=== PATIENT | female | born 1955 | race Caucasian/White ===

== ENCOUNTER → 2016-12-24 | Outpatient (CLI) | payer OTHER ==
--- NOTE | 2016-12-24 17:39 | MA ---
Screening Digital Mammogram With iCAD Analysis Clinical Indications: Routine screening. Her mother was diagnosed with breast cancer in her 60s. Technique: Standard cephalocaudal projections are obtained. Digital breast tomosynthesis was performe d in the MLO projection with reconstruction at 1.0 mm slice thickness and composite MLO views reconst ructed. This examination is processed by the iCAD computer aided detection system. Comparison: January 2014, January 2011, December 2008. Breast density: Type B; Scattered fibroglandular densities. Findings: CAD was reviewed. No masses, suspicious calcifications or secondary signs of malignancy are seen. There has been no significant change in the appearance of either breast. Impression: Negative mammogram. BI-RADS 1. Recommendation: Routine mammographic screening in one year. [facility] will send a result letter to the patient. Negative mammography should not preclude additional workup of a clinically suspicious finding. The patient's information is entered into a reminder system with a target due date for her next mammo gram.
== END ==
LOC: FIMAGING 16:26
DX: Z12.31 Encounter for screening mammogram for malignant neoplasm of breast (principal); Z80.3 Family history of malignant neoplasm of breast
CPT/HCPCS: G0202

== ENCOUNTER 2019-01-28 16:23 | Inpatient (IN) | payer OTHER ==
--- NOTE | 2019-01-28 16:32 | EDPHY ---
H & P Time Seen by Provider: 01/28/19 16:30 HPI/ROS: CHIEF COMPLAINT: Chest heaviness HISTORY OF PRESENT ILLNESS: Patient started having symptoms back around . She would notice fatigue shortness of breath and chest heaviness going up the stairs. She had a high calcium score about 3 and half years ago and has known high cholesterol. She was seen in Dr. Garcia's office and had an abnormal EKG and was sent to the emergency department for admission. Currently patient is a little bit of chest heaviness. She has had a little bit of cough but no hemoptysis and no leg swelling. Symptoms are definitely worse with exertion. Does not radiate. REVIEW OF SYSTEMS: Eye: no change in vision ENT: no sore throat Cardiac: HPI Pulmonary: HPI Abdomen: no vomiting, diarrhea, abdominal pain Musculoskeletal: Chronic spinal stenosis unchanged Skin: no rash Neuro: no headache Constitutional: no fever : no urinary symptoms A comprehensive 10 point review of systems is otherwise negative aside from elements mentioned in the history of present illness. 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 Eyes: No scleral icterus. ENT, Mouth: Normal mucous membranes. Respiratory: Normal respiratory effort, breath sounds equal, lungs are clear to auscultation. Cardiovascular: Regular rate and rhythm. Gastrointestinal: Abdomen is soft and non tender. Neurological: Alert, face symmetric, normal motor and sensory in extremities. Skin: Warm and dry, no rashes. Musculoskeletal: No peripheral edema. No calf tenderness Psychiatric: Not agitated. Emergency Department course/MDM: Suspicion for unstable angina, discussed with electronics hardware design engineer Dr. Anayeli Garcia prior to arrival. Oral aspirin, sublingual nitroglycerin, chest x-ray and EKG, admission hospitalist service for probable cardiac catheterization tomorrow. Smoking Status: Former smoker Constitutional: Initial Vital Signs Temperature (C) 36.4 C 01/28/19 16:40 Heart Rate 68 01/28/19 16:40 Respiratory Rate 16 01/28/19 16:40 Blood Pressure 175/100 H 01/28/19 16:40 O2 Sat (%) 95 01/28/19 16:40 O2 Delivery Mode Room Air Allergies/Adverse Reactions: cortisone [Cortisone] Allergy (Severe, Verified 01/28/19 18:14) prednisone Allergy (Verified 01/28/19 17:10) BROCCOLI Allergy (Uncoded 08/18/14 11:57) EGG WHITES Allergy (Uncoded 08/18/14 11:57) EGGPLANT Allergy (Uncoded 08/18/14 11:57) ZUCCHINI Allergy (Uncoded 08/18/14 11:57) Home Medications: Medication Instructions Recorded Ascorbic Acid [Vitamin C 500 mg 1,000 mg PO BID 01/28/19 (*)] Aspirin [Aspirin 325 mg (*)] 325 mg PO DAILY 01/28/19 Bimatoprost [Bimatoprost] 1 drop EACHEYE HS 01/28/19 Cholecalciferol (Vitamin D3) 5,000 unit PO DAILY 01/28/19 [Vitamin D3] Estradiol [Estradiol] 1 luke VG HS PRN 01/28/19 Herbals/Supplements -Info Only 1 ea PO DAILY 01/28/19 Ibuprofen [Motrin (*)] 600 mg PO DAILY PRN 01/28/19 Methocarbamol [Methocarbamol] 500 mg PO TID PRN 01/28/19 [place]-3 Fatty Acids/Fish Oil 1 each PO BID 01/28/19 [[place]-3 Fish Oil 1,200 mg Sfgl] Medical Decision Making - Diagnostics EKG Interpretation: 12-lead EKG interpreted by me; official reading is in computer system. My interpretation is sinus rhythm rate 65 no acute ischemic changes. Imaging Results: Imaging Impressions Chest X-Ray 01/28/19 16:42 Impression: Suspect airways disease with no superimposed acute abnormality identified. Imaging: I viewed and interpreted images myself Differential Diagnosis: Differential diagnosis considered for chest pain including but not limited to myocardial ischemia, aortic dissection, pericarditis, pulmonary embolus, chest wall pain, pleural inflammation and pulmonary infectious causes. Consult/Admit Bed Type: [facility] 1717, [place] 1726 - Data Points Laboratory Results: Laboratory Results 01/28/19 16:50 01/28/19 16:50 01/28/19 01/28/19 01/28/19 16:53 16:50 16:50 WBC 5.50 10^3/uL 10^3/uL (3.80-9.50) RBC 4.57 10^6/uL 10^6/uL (4.18-5.33) Hgb 14.1 g/dL g/dL (12.6-16.3) Hct 41.2 % % (38.0-47.0) MCV 90.2 fL fL (81.5-99.8) MCH 30.9 pg pg (27.9-34.1) MCHC 34.2 g/dL g/dL (32.4-36.7) RDW 12.3 % % (11.5-15.2) Plt Count 250 10^3/uL 10^3/uL (150-400) MPV 9.5 fL fL (8.7-11.7) Neut % (Auto) 44.3 % % (39.3-74.2) Lymph % (Auto) 45.5 % H % (15.0-45.0) [place] % (Auto) 5.6 % % (4.5-13.0) Eos % (Auto) 4.0 % % (0.6-7.6) Baso % (Auto) 0.4 % % (0.3-1.7) Nucleat RBC Rel Count 0.0 % % (0.0-0.2) Absolute Neuts (auto) 2.44 10^3/uL 10^3/uL (1.70-6.50) Absolute Lymphs (auto) 2.50 10^3/uL 10^3/uL (1.00-3.00) Absolute Monos (auto) 0.31 10^3/uL 10^3/uL (0.30-0.80) Absolute Eos (auto) 0.22 10^3/uL 10^3/uL (0.03-0.40) Absolute Basos (auto) 0.02 10^3/uL 10^3/uL (0.02-0.10) Absolute Nucleated RBC 0.00 10^3/uL 10^3/uL (0-0.01) Immature Gran % 0.2 % % (0.0-1.1) Immature Gran # 0.01 10^3/uL 10^3/uL (0.00-0.10) Sodium 137 mEq/L mEq/L (135-145) Potassium 3.7 mEq/L mEq/L (3.5-5.2) Chloride 106 mEq/L mEq/L (97-110) Carbon Dioxide 23 mEq/l mEq/l (22-31) Anion Gap 8 mEq/L mEq/L (6-14) BUN 11 mg/dL mg/dL (7-23) Creatinine 0.6 mg/dL mg/dL (0.6-1.0) Estimated GFR > 60 Glucose 92 mg/dL mg/dL (70-100) Calcium 9.2 mg/dL mg/dL (8.5-10.4) POC Troponin I 0.00 ng/mL ng/mL (0.00-0.08) Medications Given: Nitroglycerin (Nitrostat) 0.4 mg SL Q5M PRN PRN Reason: Chest Pain Last Admin: 01/28/19 17:10 Dose: 0.4 tab Discontinued Medications Aspirin (Aspirin) 324 mg PO EDNOW ONE Stop: 01/28/19 16:43 Last Admin: 01/28/19 17:08 Dose: 324 mg Point of Care Test Results: Chemistry 01/28/19 16:53 POC Troponin I 0.00 ng/mL ng/mL (0.00-0.08) Departure - Departure Disposition: [facility] Inpatient Acute Clinical Impression: Chest pain Condition: Good
[2019-01-28] MEDS ORDERED: NITROGLYCERIN 0.4 MG BTL SL PRN ×2 (16:42→17:53)
[2019-01-28] MEDS ORDERED: ASPIRIN 81 MG CHEWABLE TAB PO ONE (16:42)
[2019-01-28 17:02] LABS: PLATELET COUNT 250 10^3/uL (150-400)
--- NOTE | 2019-01-28 17:16 | CPEKG ---
Test Reason : OPEN Blood Pressure : / mmHG Vent. Rate : 065 BPM Atrial Rate : 065 BPM P-R Int : 167 ms QRS Dur : 098 ms QT Int : 421 ms P-R-T Axes : 055 -08 082 degrees QTc Int : 438 ms Sinus rhythm Confirmed by Mihir Ayon ([id number]) on 01/28/2019 5:15:37 PM Referred By: Mihir Ayon Confirmed By:Mihir Ayon
[2019-01-28] MEDS ORDERED: ACETAMINOPHEN 325 MG TAB PO PRN (17:53)
[2019-01-28] MEDS ORDERED: METHOCARBAMOL 500 MG TAB PO PRN (17:54)
--- NOTE | 2019-01-28 17:55 | PDGENHP ---
History and Physical - Chief Complaint chest pain - History of Present Illness 64yo F with history of HLD, abnormal coronary calcium score, prior smoker who presents from cardiology clinic due to concerns for unstable angina. She first noticed some chest pressure around Thanksgiving. Substernal in nature. This has gotten progressively more intense and has had more frequent episodes over the last 2 months. She had a severe episode of substernal chest pressure on 01/15 that radiated to her left jaw and arm. This occurred while she was resting. It resolved spontaneously. Since then she has had intermittent chest heaviness. There is no association of her chest pain with exertion. She has noticed more shortness of breath while walking up stairs over the last 2 weeks. She denies palpitations, leg swelling, syncope. She saw Anayeli Garcia in cardiology clinic today. ECG showed new anterior T wave inversions and she was sent to the ED. She received a dose of sublingual nitroglycerin and is currently chest pain free. Her initial troponin was negative. She is being admitted for further evaluation and management of her chest pain. History Information - Allergies/Home Medication List Allergies/Adverse Reactions: cortisone [Cortisone] Allergy (Severe, Verified 01/28/19 18:14) prednisone Allergy (Verified 01/28/19 17:10) BROCCOLI Allergy (Uncoded 08/18/14 11:57) EGG WHITES Allergy (Uncoded 08/18/14 11:57) EGGPLANT Allergy (Uncoded 08/18/14 11:57) ZUCCHINI Allergy (Uncoded 08/18/14 11:57) Home Medications: Ascorbic Acid [Vitamin C 500 mg (*)] 1,000 mg PO BID 01/28/19 [Last Taken Unknown] Aspirin [Aspirin 325 mg (*)] 325 mg PO DAILY 01/28/19 [Last Taken 01/28/19] Bimatoprost [Bimatoprost] 1 drop EACHEYE HS 01/28/19 [Last Taken 01/27/19 21:00] Cholecalciferol (Vitamin D3) [Vitamin D3] 5,000 unit PO DAILY 01/28/19 [Last Taken Unknown] Estradiol [Estradiol] 1 luke VG HS PRN 01/28/19 [Last Taken Unknown] Herbals/Supplements -Info Only 1 ea PO DAILY 01/28/19 [Last Taken Unknown] Ibuprofen [Motrin (*)] 600 mg PO DAILY PRN 01/28/19 [Last Taken Unknown] Methocarbamol [Methocarbamol] 500 mg PO TID PRN 01/28/19 [Last Taken Unknown] [place]-3 Fatty Acids/Fish Oil [[place]-3 Fish Oil 1,200 mg Sfgl] 1 each PO BID [Last Taken Unknown] I have personally reviewed and updated: family history, medical history, social history, surgical history - Past Medical History Additional medical history: glaucoma, HLD (LDL 181 from 01/15/2019), positive coronary calcium score, mild dilation of ascending aorta (4cm), osteopenia, cervcial and lumbar stenosis, esophageal ulcer - Surgical History Additional surgical history: ectopic resection, ankle repair, knee arthroscopy - Family History Additional family history: maternal grandmother with CAD in 80s - Social History Smoking Status: Former smoker (30 pack year history, quit 13 years ago) Alcohol Use: Occasionally Drug Use: None Additional social history: at bedside. Works at [employer] career on [employer]. Review of Systems Review of Systems: ROS: 10pt was reviewed & negative except for what was stated in HPI & below Physical Exam Physical Exam: Temp Pulse Resp BP Pulse Ox 36.4 C 66 14 180/104 H 95 01/28/19 16:40 01/28/19 17:12 01/28/19 17:12 01/28/19 17:12 01/28/19 17:12 Constitutional: no apparent distress, appears nourished, not in pain Eyes: PERRL, anicteric sclera, EOMI Ears, Nose, Mouth, Throat: moist mucous membranes, hearing normal, ears appear normal, no oral mucosal ulcers Cardiovascular: regular rate and rhythym, no murmur, rub, or gallop, No JVD, No edema Respiratory: no respiratory distress, no rales or rhonchi, clear to auscultation Gastrointestinal: normoactive bowel sounds, soft, non-tender abdomen, no palpable masses Genitourinary: no bladder fullness, no bladder tenderness Skin: warm, normal color, no rashes or abrasions, no fluctuance, no induration, No mottled Musculoskeletal: full muscle strength, no muscle tenderness, normal joint ROM, no joint effusions Neurologic: AAOx3 Psychiatric: interacting appropriately, not anxious, not encephalopathic, thought process linear Lab Data & Imaging Review 01/28/19 16:50 01/28/19 16:50 WBC 5.50 10^3/uL (3.80-9.50) 01/28/19 16:50 RBC 4.57 10^6/uL (4.18-5.33) 01/28/19 16:50 Hgb 14.1 g/dL (12.6-16.3) 01/28/19 16:50 Hct 41.2 % (38.0-47.0) 01/28/19 16:50 MCV 90.2 fL (81.5-99.8) 01/28/19 16:50 MCH 30.9 pg (27.9-34.1) 01/28/19 16:50 MCHC 34.2 g/dL (32.4-36.7) 01/28/19 16:50 RDW 12.3 % (11.5-15.2) 01/28/19 16:50 Plt Count 250 10^3/uL (150-400) 01/28/19 16:50 MPV 9.5 fL (8.7-11.7) 01/28/19 16:50 Neut % (Auto) 44.3 % (39.3-74.2) 01/28/19 16:50 Lymph % (Auto) 45.5 % (15.0-45.0) H 01/28/19 16:50 [place] % (Auto) 5.6 % (4.5-13.0) 01/28/19 16:50 Eos % (Auto) 4.0 % (0.6-7.6) 01/28/19 16:50 Baso % (Auto) 0.4 % (0.3-1.7) 01/28/19 16:50 Nucleat RBC Rel Count 0.0 % (0.0-0.2) 01/28/19 16:50 Absolute Neuts (auto) 2.44 10^3/uL (1.70-6.50) 01/28/19 16:50 Absolute Lymphs (auto) 2.50 10^3/uL (1.00-3.00) 01/28/19 16:50 Absolute Monos (auto) 0.31 10^3/uL (0.30-0.80) 01/28/19 16:50 Absolute Eos (auto) 0.22 10^3/uL (0.03-0.40) 01/28/19 16:50 Absolute Basos (auto) 0.02 10^3/uL (0.02-0.10) 01/28/19 16:50 Absolute Nucleated RBC 0.00 10^3/uL (0-0.01) 01/28/19 16:50 Immature Gran % 0.2 % (0.0-1.1) 01/28/19 16:50 Immature Gran # 0.01 10^3/uL (0.00-0.10) 01/28/19 16:50 Sodium 137 mEq/L (135-145) 01/28/19 16:50 Potassium 3.7 mEq/L (3.5-5.2) 01/28/19 16:50 Chloride 106 mEq/L (97-110) 01/28/19 16:50 Carbon Dioxide 23 mEq/l (22-31) 01/28/19 16:50 Anion Gap 8 mEq/L (6-14) 01/28/19 16:50 BUN 11 mg/dL (7-23) 01/28/19 16:50 Creatinine 0.6 mg/dL (0.6-1.0) 01/28/19 16:50 Estimated GFR > 60 01/28/19 16:50 Glucose 92 mg/dL (70-100) 01/28/19 16:50 Calcium 9.2 mg/dL (8.5-10.4) 01/28/19 16:50 POC Troponin I 0.00 ng/mL (0.00-0.08) 01/28/19 16:53 Interpretation: CXR: clear lung luna, no infiltrate or effusion, normal sized heart, no heart failure (interp by me) EKG additional interpertation: ECG: NSR, normal axis and intervals, normal ST-T wave segments (no T wave inversions as seen in clinic earlier), no Q waves, good R wave progression (interp by me) Assessment & Plan Assessment: 64yo F with history of HLD, abnormal coronary calcium score, prior smoker who presents from cardiology clinic with chest pain. Plan: #Chest pain: Concern for progressive angina. Her story is convincing for coronary ischemia. She had an ECG at clinic that showed anterior T wave inversions but those have resolved here. Her initial troponin is negative. She is chest pain free. - Serial troponins - Telemetry - Sublingual nitro PRN - Cardiology consulted. If remains pain free/stable overnight, plan for coronary angiogram in AM - Will hold on systemic heparin unless rising trops/worsening symptoms - Start aspirin, atorvastatin 40, metoprolol 25 BID #Elevated BP: Noted on arrival to ED. Improved after 1 dose of nitroglycerin. - Beta flakita as above. Enalaprilat PRN for SBP>180 #Mildly dilated ascending aorta: 4cm on prior scan - Beta flakita. Needs surveillance of this as outpatient #Glaucoma: Cont home eye drops. VTE ppx: SCDs Code: full Diet: cardiac, NPO at midnight Dispo: Admit under observation
[2019-01-28] MEDS ORDERED: ENALAPRILAT DIHYDRATE 1.25 MG/ML VIAL IVP PRN (18:33)
[2019-01-28] MEDS ORDERED: TEMAZEPAM 15 MG CAP PO PRN (20:12)
[2019-01-28] MEDS ORDERED: METOPROLOL TARTRATE 25 MG TAB PO SCH (21:00)
[2019-01-28] MEDS: METOPROLOL TARTRATE 25 MG TAB PO SCH (21:32)
[2019-01-28] MEDS: BIMATOPROST 0.03% EACHEYE SCH (21:33)
--- NOTE | 2019-01-28 22:02 | PDCARPN ---
Cardiology Progress Note Assessment/Plan: Assessment: 1. Unstable angina (currnetly pain free) 2. New TWI in anterior leads 3. CAD via calcium score Plan: NPO after midnight LHC in AM No contraindication for DAPT 01/28/19 22:01 Subjective: 64 F with hx of cad based on calciums score and hx of smoking with symptoms of unstable angina and new anterior TWI on ECG on visit with Dr. Garcia todayMariano Tse was admitted to via ER. She is stable. Chest pain free at this time. Troponin negative. Reviewed/Discussed With: family Objective: Vital Signs (8 Hrs) Pulse Resp BP Pulse Ox 01/28/19 21:32 65 161/103 H 01/28/19 20:30 68 16 137/62 H 95 01/28/19 20:00 67 16 137/80 H 94 01/28/19 19:30 64 16 144/86 H 95 01/28/19 18:00 61 16 144/87 H 95 Intake/Output (24 Hrs) 01/27/19 01/28/19 01/29/19 05:59 05:59 05:59 Output Total 1 Balance -1 Output: Urine (ml) 1 Toilet 1 Other: Number of Voids 2 Result Diagrams: 01/28/19 16:50 01/28/19 16:50 - Physical Exam Constitutional: WDWN Neurologic: AAOx3, CN II-XII grossly intact Psychiatric: cooperative, interactive, following commands ICD10 Worksheet Patient Problems: Problems Problem Status Onset Chest pain Acute
[2019-01-28] MEDS ORDERED: LORazepam 1 MG TAB PO ONE (22:03)
[2019-01-29] MEDS ORDERED: NS 1,000 ML IV ONE (06:00)
[2019-01-29] MEDS ORDERED: FAMOTIDINE 20 MG TAB PO ONE (06:00)
[2019-01-29] MEDS ORDERED: diphenhydrAMINE 25 MG CAP PO ONE ×2 (06:00→09:29)
[2019-01-29] MEDS ORDERED: DIAZEPAM 5 MG TAB PO ONE (06:00)
[2019-01-29 06:09] LABS: PLATELET COUNT 236 10^3/uL (150-400)
[2019-01-29 06:25] LABS: INR 1.1 (0.83-1.16); PROTIME(PATIENT) 14.4 SEC (12.0-15.0)
[2019-01-29] MEDS ORDERED: fentaNYL 100 MCG/2 ML INJ ONE ×2 (09:03→11:11)
[2019-01-29] MEDS ORDERED: IOPAMIDOL (ISOVUE-370) 150 ML BTL IV ONE (09:03)
[2019-01-29] MEDS ORDERED: LIDOCAINE 1% 300 MG/30 ML SDV ONE (09:03)
[2019-01-29] MEDS ORDERED: MIDAZOLAM 2 MG/2 ML VIAL ONE ×3 (09:03→11:56)
--- NOTE | 2019-01-29 09:07 | PDHPUP ---
History & Physical Update H&P update statement: This history and physical update is based on an assessment of the patient which was completed after admission or registration (within 24 hours), but prior to the surgery/procedure. H&P update: H&P reviewed & patient examined, no change in patient's condition since H&P completed
--- NOTE | 2019-01-29 09:07 | PDPROPOC ---
Sedation Plan of Care Sedation Plan of Care: vital signs stable, mental status noted, patient educated of risks, benefits, alternatives, patient can tolerate sedation ASA Classification: ASA 2 Planned drugs: fentanyl, midazolam Mallampati Reference Image: Patient passed 3-3-2 rule?: Yes
[2019-01-29] MEDS: METOPROLOL TARTRATE 25 MG TAB PO SCH ×2 (09:17→20:44)
[2019-01-29] MEDS: ATORVASTATIN CALCIUM 40 MG TAB PO SCH (09:17)
[2019-01-29] MEDS: ASPIRIN 325 MG TAB PO SCH (09:17)
[2019-01-29] MEDS ORDERED: ASPIRIN EC 325 MG TAB PO ONE (09:29)
[2019-01-29] MEDS ORDERED: FAMOTIDINE 20 MG TAB ONE (09:29)
[2019-01-29] MEDS ORDERED: DIAZEPAM 5 MG TAB ONE (09:29)
--- NOTE | 2019-01-29 09:29 | ASMTCMCOM ---
CM Note CM Note Notes: 01/29/2019 Case Management Note Pt is well known to case management on a professional level as part of the transitional care team. Out of respect for privacy, did not review chart or records. Discussed discharge needs with patient and her . Pt to clinical lab clerk today. There are no case management d/c needs identified d/t marital status, employment status, and independence with ADL's prior to admission. Case Management d/c poc: independent with follow up as directed. Case Management available if needs change. Date Signed: 01/29/2019 09:29 AM Electronically Signed By:Maria Teresa Hoyos RN
[2019-01-29] MEDS ORDERED: BIVALIRUDIN 250 MG/5 ML VIAL IV ONE (10:56)
--- NOTE | 2019-01-29 11:21 | PDDXCAT ---
Diagnostic Cath Note - . Date: 01/29/19 Gas Station Cashier: Jose Indication: other (Unstable angina) - Procedure Access: right groin Procedure: left heart catheterization, coronary angiography, left ventriculogram - Materials Left Heart Cath size: 6F Left Heart Cath materials: standard multipack (JL4, JR4, pigtail) - Findings-Left Heart Catheterization LM: The left main is normal and bifurcates into the LAD and left circumflex. LAD: The LAD is moderately calcified. There serial 40-50% lesions in the proximal section. High 1st diagonal appears to be subtotally occluded in its midportion. There is a small 2nd diagonal as well. LCX: The left circumflex is normal. There is a single large branching obtuse marginal without significant coronary disease RCA: 90% proximal stenosis. 50% stenosis at the bifurcation of the PDA. The RCA is dominant. EDP: 17 LVEF: 65% Wall motion: Normal - Findings-Right Heart Catheterization AO: 97/42. No aortic stenosis Complications: none Estimated blood loss: <50ml Closure method: Angioseal Assessment: 2 vessel coronary disease in a patient with unstable angina. Interventional consult with Dr. Arroyo. Plan: Consideration for PCI of the RCA as well as the 1st diagonal Patient Problems: Problems Problem Status Onset Chest pain Acute
[2019-01-29] MEDS ORDERED: ATROPINE SULFATE 1 MG/10 ML SYR ONE (11:28)
[2019-01-29] MEDS ORDERED: NITROGLYCERIN 1,500 MCG/15 ML VIAL MISC ONE (12:06)
[2019-01-29] MEDS ORDERED: CLOPIDOGREL BISULFATE 75 MG TAB ONE (12:16)
[2019-01-29] MEDS ORDERED: CLOPIDOGREL BISULFATE 75 MG TAB PO ONE (12:21)
[2019-01-29] MEDS ORDERED: ONDANSETRON 4 MG/2 ML VIAL IVP PRN (12:21)
[2019-01-29] MEDS ORDERED: ATROPINE SULFATE 1 MG/10 ML SYR IVP PRN (12:21)
[2019-01-29] MEDS ORDERED: HYDROCODONE/APAP 5/325 TAB PO PRN (12:21)
--- NOTE | 2019-01-29 12:27 | PDDXCAT ---
Diagnostic Cath Note - . Date: 01/29/19 [employer] And Compliance Analytics Director: Cruz Indication: other (Unstable angina) - Procedure Access: right groin - Materials Left Heart Cath size: 6F Estimated blood loss: <50ml Closure method: TR Band Assessment: 1) Successful PCI of the proximal RCA with placement of a single drug-coated stent. 2) Successful angioplasty of the first diagonal branch. Intervention: Please refer to the diagnostic cardiac catheterization report by Dr. Anayeli Garcia. Briefly, her diagnostic study demonstrated normal left ventricular systolic function, noncritical disease of the LAD and circumflex, a focal high- grade stenosis in the proximal RCA, and total occlusion of the first diagonal branch of the LAD with [id number] collaterals. Based on the patient's clinical history and diagnostic angiography. The decision was made to perform PCI of the proximal RCA and the first diagonal branch. The patient received intravenous Angiomax. A 6 [place] JR 4 guide catheter was advanced to the proximal RCA. An Intuition guidewire was advanced to the distal RCA. Pre-dilatation of the target lesion was performed using a 3.0 x 8 mm Emerge balloon. A 3.5 x 12 mm Synergy stent was advanced into position and deployed at high pressure. Subsequent angiograms demonstrated 0% residual stenosis and JUNG-III flow. Attention was then turned to the first diagonal branch of the LAD. A 6 Telugu CLS 3.5 guide catheter was advanced to the left main. The intuition guidewire was advanced to the distal portion of the first diagonal branch. A series of inflations was performed using a 2.0 x 12 mm Emerge balloon. Even following administration of intracoronary nitroglycerin, the first diagonal branch appeared to be a small caliber vessel that was borderline for consideration of stent placement. There was JUNG-3 flow with no worse than 20-30% residual stenosis. At this point it was decided to accept a reasonably good balloon angioplasty result. If she develops restenosis, consideration could be given to repeat PCI with stent placement. Patient Problems: Problems Problem Status Onset Chest pain Acute
[2019-01-29] MEDS ORDERED: NS 1,000 ML IV SCH (12:30)
--- NOTE | 2019-01-29 16:15 | HOSPPROG ---
Hospitalist Progress Note Assessment/Plan: * Unstable angina * CAD s/p stent RCA, angioplasty to diag -ASA/Plavix * Hyperlipidemia -agreeable to statin * HTN -now on metoprolol * Glaucoma Subjective: No complaints, happy she had procedure Objective: Vital Signs Temp Pulse Resp BP Pulse Ox 36.4 C 66 10 L 126/81 H 95 01/29/19 15:00 01/29/19 16:08 01/29/19 16:08 01/29/19 16:08 01/29/19 16:08 Laboratory Results 01/29/19 05:55 01/29/19 05:55 01/28/19 01/29/19 01/30/19 05:59 05:59 05:59 Intake Total 300 Output Total 1 Balance 299 PT 14.4 SEC (12.0-15.0) 01/29/19 05:55 INR 1.10 (0.83-1.16) 01/29/19 05:55 cath report reviewed - stent to RCA, 50% proximal LAD residual lesion EKG viewed, my personal interpretation is : TWI AVL - Physical Exam Constitutional: no apparent distress, appears nourished, not in pain Cardiovascular: regular rate and rhythym, no murmur, rub, or gallop Respiratory: no respiratory distress, no rales or rhonchi, clear to auscultation Gastrointestinal: normoactive bowel sounds, soft, non-tender abdomen, no palpable masses Skin: no rashes or abrasions, no fluctuance, no induration Neurologic: AAOx3, sensation intact bilaterally Psychiatric: interacting appropriately, not anxious, not encephalopathic, thought process linear ICD10 Worksheet Patient Problems: Problems Problem Status Onset Chest pain Acute
[2019-01-29] MEDS ORDERED: LORazepam 1 MG TAB PO ONE (21:00)
[2019-01-29] MEDS: BIMATOPROST 0.03% EACHEYE SCH (22:20)
[2019-01-30 07:45] VITALS: BP 118/81
[2019-01-30] MEDS: METOPROLOL TARTRATE 25 MG TAB PO SCH (08:03)
[2019-01-30] MEDS: ASPIRIN 325 MG TAB PO SCH (08:03)
[2019-01-30] MEDS: ATORVASTATIN CALCIUM 40 MG TAB PO SCH (08:03)
[2019-01-30] MEDS ORDERED: CLOPIDOGREL BISULFATE 75 MG TAB PO SCH (09:00)
--- NOTE | 2019-01-30 09:24 | PDCARPN ---
<Gurmeet Locke - Last Filed: 01/30/19 09:49> Cardiology Progress Note Assessment/Plan: Assessment/Plan: 64-year-old female with intermittent hypertension, dyslipidemia, positive calcium score. Admitted from clinic on 01/28 with unstable angina. Now status post single drug-eluting stent to the proximal RCA (3.5 x 12 mm NILES) and balloon angioplasty to a small 1st diagonal. Diagonal was too small for stent implantation. Ejection fraction is normal 1. Coronary disease/unstable angina/status post PCI: She is now chest pain- free. The importance of uninterrupted dual antiplatelet therapy with aspirin/ Plavix was reviewed with the patient. Risks of bleeding were also discussed. In 1 month she will reduce her aspirin to 81 mg daily. Statin has been started. Continue beta-blockers.. Enroll in cardiac rehab. Groin precautions were reviewed. 2. Dyslipidemia: Recent LDL 181. Atorvastatin 40 mg daily has been started this admission. Repeat lipids in 8-12 weeks. 3. Hypertension: Now well controlled with metoprolol. Change to Toprol 50 mg daily for ease of dosing. 4. Mildly dilated ascending aorta at [address] scan. Beta-blockers have been started. This will need serial follow-up, ideally with echo. She appears stable for discharge from a cardiac standpoint. Follow up in [address] [facility]. Greater than 30 min was spent in direct patient care and discussion with family today. 01/30/19 09:51 Subjective: She feels well. She has fatigue. No recurrent angina or dyspnea. Mild lightheadedness when she goes from sitting to standing. Minimal groin tenderness. She ambulated without groin tenderness. Eating well. Reviewed/Discussed With: family Time Spent with Patient: greater than 25 minutes Time Spent with Patient: Greater than 25 minutes spent on this patients care, greater than 50% of time spent counseling, educating, and coordinating care regarding the above mentioned plan. Objective: Vital Signs (8 Hrs) Temp Pulse Resp BP Pulse Ox 01/30/19 07:45 36.4 C 62 14 118/81 H 97 01/30/19 05:00 36.8 C 65 16 103/66 91 L Intake/Output (24 Hrs) 01/29/19 01/30/19 01/31/19 05:59 05:59 05:59 Intake Total 300 350 Output Total 1 600 Balance 299 -250 Intake: Oral (ml) 300 350 Output: Urine (ml) 1 600 Toilet 1 600 Other: Weight 77.111 kg Output Comment Toilet 600 out in cvc Number of Voids 2 Toilet 1 1 No acute distress. Up in chair JVP less than 10. Regular rate and rhythm without murmur or gallop Lungs clear bilaterally wheeze rhonchi rales No lower extremity edema Alert and oriented x3 without gross focal neurological deficits. Appropriate mood and affect. Right femoral arteriotomy site is clean dry and intact. Dressing removed. No bruit, hematoma, or significant ecchymoses. Result Diagrams: 01/29/19 05:55 01/29/19 05:55 Cardiac Labs: Cardiac Lab Results (72 Hrs) 01/29/19 01/28/19 05:55 23:48 Troponin I < 0.012 < 0.012 EKG: Reviewed serial tracings: Sinus rhythm. Dynamic mild T-wave inversion in anterior leads. No ST elevation or ST depression. No Q-waves. Telemetry: Sinus rhythm ICD10 Worksheet Patient Problems: Problems Problem Status Onset Chest pain Acute <Anayeli Garcia G - Last Filed: 01/30/19 09:58> Cardiology Progress Note Assessment/Plan: Assessment: Please note that this entire progress note was written by Dr. Anayeli Garcia but I was inadvertently under Dr. Locke is profile so his name is on it. I have logged him out and signed my name. Plan: 01/30/19 09:57 Objective: Vital Signs (8 Hrs) Temp Pulse Resp BP Pulse Ox 01/30/19 07:45 36.4 C 62 14 118/81 H 97 01/30/19 05:00 36.8 C 65 16 103/66 91 L Intake/Output (24 Hrs) 01/29/19 01/30/19 01/31/19 05:59 05:59 05:59 Intake Total 300 350 Output Total 1 600 Balance 299 -250 Intake: Oral (ml) 300 350 Output: Urine (ml) 1 600 Toilet 1 600 Other: Weight 77.111 kg Output Comment Toilet 600 out in cvc Number of Voids 2 Toilet 1 1 Result Diagrams: 01/29/19 05:55 01/29/19 05:55 Cardiac Labs: Cardiac Lab Results (72 Hrs) 01/29/19 01/28/19 05:55 23:48 Troponin I < 0.012 < 0.012
--- NOTE | 2019-01-30 14:28 | ASDISCHSUM ---
Discharge Information Plan Status:Home with No Needs Medically Cleared to Leave: Discharge Date:01/30/2019 11:37 AM CM D/C Disposition:Home, Routine, Self-Care ADT D/C Disposition:Home, Routine, Self-Care Projected Discharge Date:01/30/2019 11:37 AM Transportation at D/C:Family Discharge Delay Reason: Follow-Up Date:01/30/2019 11:37 AM Discharge Slot: Final Diagnosis: Placement Information Patient Contact Information Contact Name:WM Relationship: Address:[address] [place] [address] City:[place] Alternate Phone: [facility]/Zip Code:[place] [address] Email: Financial Information Financial Class:Gi[employer] [facility] Primary Plan Number:[id number] Secondary Plan Desc: Secondary Plan Number: Assessment Information LACE LACE Length of stay for Answers: 1 day current admission Acuity / Level of Answers: No Care: Did the patient have an inpatient admission? Comorbidities - select Answers: Mild liver or renal all that apply disease Other Notes: HLD # of Emergency department Answers: 1-2 visits in the last 6 months Score: 5 Date Signed: 01/30/2019 02:26 PM Electronically Signed By:Laine Yee [facility] CM Progress Note CM Note CM Note Notes: 01/29/2019 Case Management Note Pt is well known to case management on a professional level as part of the transitional care team. Out of respect for privacy, did not review chart or records. Discussed discharge needs with patient and her . Pt to laboratory clerk today. There are no case management d/c needs identified d/t marital status, employment status, and independence with ADL's prior to admission. Case Management d/c poc: independent with follow up as directed. Case Management available if needs change. Date Signed: 01/29/2019 09:29 AM Electronically Signed By:Maria Teresa Hoyos RN Intervention Information
--- NOTE | 2019-01-31 04:15 | GDS ---
[f rep st] DISCHARGE SUMMARY DISCHARGE DIAGNOSES: 1. Unstable angina. 2. Coronary artery disease, status post stent to the right coronary artery and angioplasty to the di agonal. 3. Hyperlipidemia. 4. Hypertension. 5. Glaucoma. HISTORY: The patient is a 64-year-old female who had been having intermittent chest pain and was see n by Dr. Anayeli Garcia in the office. Some T-wave inversions were noted, and she was sent to the [facility] for cardiac catheterization. She was found to have significant blockage of her right coronary art sachi, which got a stent. They also did angioplasty to her diagonal. She will discharge on both aspir in and Plavix. She has significant hyperlipidemia, but has been resistant to statin therapy in the p ast. She is now agreeable and did discharge with atorvastatin 40 mg p.o. daily. She was also starte d on metoprolol. DISCHARGE MEDICATIONS: Please see computerized record for full detailed list. New medications: 1. Atorvastatin 40 mg p.o. daily. 2. Plavix 75 mg p.o. daily. 3. Metoprolol XR 50 mg p.o. daily. ADDITIONAL DISCHARGE INSTRUCTIONS: 1. Follow up with Dr. Anayeli Garcia. 2. Cardiac rehab. 3. Standard groin precautions. 4. Reduce aspirin to 81 mg p.o. daily in 1 month's time. Greater than 30 minutes' time was spent arranging this discharge. Patient was seen and examined by ayala farias on the day of discharge. /[id number]/MODL
[2019-01-31] MEDS ORDERED: METOPROLOL SUCCINATE XR 50 MG TAB PO SCH (09:00)
--- NOTE | 2019-02-03 11:23 | CPEKG ---
Test Reason : OPEN Blood Pressure : / mmHG Vent. Rate : 066 BPM Atrial Rate : 066 BPM P-R Int : 163 ms QRS Dur : 089 ms QT Int : 413 ms P-R-T Axes : 068 -06 087 degrees QTc Int : 433 ms Sinus rhythm Probable left atrial enlargement Nonspecific T abnrm, anterolateral leads Confirmed by Gurmeet Locke ([id number]) on 02/03/2019 11:23:35 AM Referred By: Thom Membreno Confirmed By:Gurmeet Locke
--- NOTE | 2019-02-03 11:25 | CPEKG ---
Test Reason : OPEN Blood Pressure : / mmHG Vent. Rate : 050 BPM Atrial Rate : 050 BPM P-R Int : 185 ms QRS Dur : 095 ms QT Int : 484 ms P-R-T Axes : 060 003 089 degrees QTc Int : 442 ms Sinus rhythm Nonspecific T abnrm, anterolateral leads Confirmed by Gurmeet Locke ([id number] on 02/03/2019 11:25:18 AM Referred By: Thom Membreno Confirmed By:Gurmeet Locke
== END 2019-01-30 11:37 | disposition home or self-care (01) | DRG 247 ==
LOC: F2W 20:42 → OBSVTOIN 01-29 12:44
PROVIDERS: ADMIT Internal Medicine; ATTEND Internal Medicine
PROC: 027034Z Dilation of Coronary Artery, One Artery with Drug-eluting Intraluminal Device, Percutaneous Approach (ICD-10-PCS; principal; 2019-01-29)
PROC: B2111ZZ Fluoroscopy of Multiple Coronary Arteries using Low Osmolar Contrast (ICD-10-PCS; principal; 2019-01-29)
PROC: 4A023N7 Measurement of Cardiac Sampling and Pressure, Left Heart, Percutaneous Approach (ICD-10-PCS; principal; 2019-01-29)
PROC: 02703ZZ Dilation of Coronary Artery, One Artery, Percutaneous Approach (ICD-10-PCS; principal; 2019-01-29)
PROC: B2151ZZ Fluoroscopy of Left Heart using Low Osmolar Contrast (ICD-10-PCS; principal; 2019-01-29)
DX: I25.10 Atherosclerotic heart disease of native coronary artery without angina pectoris (principal); E78.5 Hyperlipidemia, unspecified; I10 Essential (primary) hypertension; I77.810 Thoracic aortic ectasia; H40.9 Unspecified glaucoma; Z87.891 Personal history of nicotine dependence
CPT/HCPCS: 84484-ER; C1725; C1760; C1769; C1874; C1887; C9600; G0378; J0461; J0583; J1644; J2250; J2405; J3010; Q9967

== ENCOUNTER → 2019-02-04 | Outpatient (CLI) | payer OTHER | LOC: FIMAGING 11:39 | PROVIDERS: ATTEND Physician Assistant Medical | DX: T14.8XXA Other injury of unspecified body region, initial encounter (principal) ==